=== PATIENT | female | born 1970 | race Caucasian/White ===

== ENCOUNTER → 2018-02-11 | Outpatient (CLI) | payer OTHER ==
[~2018-02-11] VITALS: Ht 170.2 cm; Wt 86.6 kg
[~2018-02-11] MED LIST: CYCLOBENZAPRINE5 MG PO; MEDROL DOSPAK21 TA1 PO; NAPROSYN500 MG PO; OXYCODONE-ACET1 EACH PO
--- NOTE | ~2018-02-11 | HPC ---
[facility] [place] [address] PAIN MANAGEMENT CONSULTATION Name: KAREN JUAN [facility] #: [facility] [id number] Admission: 02/11/18 Attend Phys: Kenny Moulton DO Discharge: Date of : 74 Report #: [id number] THIS REPORT FOR: //name// CC: Kenny Lau DATE OF SERVICE: 02/11/2018 REFERRING PHYSICIAN: Mookie Dallas M.D. CHIEF COMPLAINT: Neck pain and left upper extremity pain with paresthesias. HISTORY OF PRESENT ILLNESS: As you know, the patient is a 47-year-old female who had acute onset of neck pain, left upper extremity pain with paresthesias, presented on 02/01/2018. The patient denies any specific injury or trauma that may have led to symptom occurrence. The patient continued to experience pain intense enough that she was ultimately sent for imaging that showed a significant herniated disk at the C6-C7 level for which she was then referred to Neurosurgery. Neurosurgery evaluated the patient and advised her to trial an epidural injection under fluoroscopic guidance. There were plans for the patient to undergo surgery in the very near future, assuming no improvement in symptoms given the size of the C6-C7 herniation. She indicates pain today at level of 6-10/10. She states her pain is exacerbated with movement and improves with medications. She describes the pain as continuous, constant. She uses descriptors such as burning, shooting, aching, sharp, stabbing, numbness and tingling when describing pain. She has been referred to our service to trial a cervical epidural injection under fluoroscopic guidance in hopes of improving pain as we await surgical options. PAST MEDICAL HISTORY: None. PAST SURGICAL HISTORY: 1. Appendectomy. 2. Tonsillectomy. SOCIAL HISTORY: The patient denies tobacco, IV or illicit drug use. Admits to approximately 5 alcoholic beverages per week. 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 She is working, not receiving workmen's compensation nor is she trying to obtain disability benefits. She is not in litigation in regards to pain. She is unaccompanied at today's visit. REVIEW OF SYSTEMS: Positive for neck pain, left upper extremity pain with paresthesias and insomnia. All other review of systems negative per 12-point review of systems other than those listed in history of present illness. [address] [address] PAIN MANAGEMENT CONSULTATION Name: KAREN JUAN Room #: REG CLI Alexa#: [id number] Admission: 02/11/18 Attend Phys: Kenny Moulton DO Discharge: Date of : 74 Report #: [id number] PAIN SCORE: Pain impact score 43/70 indicating [id number] interference of daily activities secondary to pain. ALLERGIES: No known drug allergies. CURRENT MEDICATIONS: Cyclobenzaprine 5 mg t.i.d., Medrol Dosepak as directed, Percocet 5/325 one tab p.o. q. 6 hours p.r.n. for pain, naproxen 500 mg 3 times a day. IMAGING DATA: MRI of cervical spine obtained 02/09/2018 shows C2-C3, C3-C4, C4-C5 unremarkable; C5-C6 has generalized posterior disk osteophyte complex eccentric to the right with moderate right neural foraminal stenosis, no central canal stenosis; C6-C7, there is a posterior disk osteophyte complex, superimposed posterior disk herniation, herniation compresses the left anterior margin of the spinal cord and contributes to moderate left central canal stenosis, mild bilateral neural foraminal stenosis and C7-T1 unremarkable. PHYSICAL EXAMINATION: VITAL SIGNS: Blood pressure 133/69, pulse 95 and respiratory rate 14 and unlabored. The patient is 97% on room air. Height 5 feet 7 inches tall, weight 191 pounds and BMI calculated 29.9. GENERAL: Well-developed, well-nourished, well-hydrated 47-year-old female appearing stated age, placing current pain score 6-10/10. HEENT: Normocephalic and atraumatic. Pupils equal, round and reactive to light. Extraocular muscles are intact. Sclerae nonicteric without injection. NEUROLOGICAL: Cranial nerves 2 through 12 grossly intact. Speech is fluent. The patient deemed an excellent historian. LUNGS: Clear. No wheeze, rhonchi or rales. CARDIOVASCULAR: Regular. No appreciable gallop or rub. ABDOMEN: Soft, nontender and nondistended. EXTREMITIES: Show no clubbing, no cyanosis and no edema. MUSCULOSKELETAL: Upper extremity strength appears symmetrical 5/5. Muscle bulk and tone equal and symmetrical. Spurlings test positive left, negative right. Cervical provocation testing including extension, rotation, lateral flexion all intensify neck pain with radiation down the left arm and classic cervical radiculopathy. Deep tendinous reflexes symmetrical biceps, brachialis and triceps. ASSESSMENT: 1. Cervical radiculopathy. 2. Displacement of a cervical intervertebral disk with radiculopathy. 3. Cervical spondylosis with radiculopathy. PLAN: 1. Based on today's physical exam and history the patient has provided, the [facility] [address] [facility] [place] [address] PAIN MANAGEMENT CONSULTATION Name: KAREN JUAN Room #: REG CLDariel Lunsford#: [id number] Admission: 02/11/18 Attend Phys: Kenny Moulton DO Discharge: Date of : 74 Report #: [id number] description the patient uses in regards to pain as well as the distribution of symptoms in a dermatomal pattern, likely source of the patient's pain is cervical radiculopathy. This correlates with the C6-C7 findings and concurs with recent neurosurgery evaluation concluding similar diagnosis. The patient and I discussed at length today the treatment options available for cervical radiculopathy. The following was discussed with the patient for treatment options. The patient and I discussed physical therapy, stretching exercise, core strengthening and traction techniques as an option for treatment. We discussed medication management adding neuropathic pain medications and a consistent opioid along with nonsteroidal anti-inflammatories. We discussed the requested cervical epidural injection under fluoroscopic guidance. We discussed surgical options. After reviewing the risks and benefits of all proposed treatment options, the patient chose to begin with a cervical epidural injection under fluoroscopic guidance. 2. The patient was advised risks and benefits of a cervical epidural injection. These risks include but are not necessarily limited to bleeding, bruising, infection, worsening pain, no relief of pain, also risk of temporary or permanent muscle weakness, temporary or permanent nerve damage, possible paralysis, post-dural puncture headache and . The patient states understood and wished to proceed. 3. The patient was provided a refill prescription on her Percocet 5/325 one tab p.o. q. 6 hours p.r.n. for pain. I have given the patient #60 tablets, releasing today. She is to take this medication only as directed. She is to watch for any side effects of sleepiness, disorientation, confusion, mental slowing with its use. 4. We will see the patient back in followup visit, 02/25/2018 to discuss efficacy of today's epidural injection and determine if next in the series is necessary. 5. We wish to thank Dr. Zach Dallas and his nurse practitioners for the opportunity to see this patient in consultation. We will keep you apprised of her response to treatment as we address cervical radicular symptoms. Again, we wish to thank you for the opportunity to see the patient in consultation. PROCEDURE NOTE DESCRIPTION OF PROCEDURE: C7-T1 cervical epidural steroid injection under fluoroscopic guidance. This is the first procedure of the first series that the patient is undergoing. After obtaining written consent, the patient was taken back to the fluoroscopy suite and placed in a prone position with separate pillows under chest and forehead to decrease cervical lordosis. The skin overlying the cervical area was prepped and draped in an aseptic fashion. The C7-T1 vertebral interspace [address] [address] PAIN MANAGEMENT CONSULTATION Name: YESSICAKAREN ALYSSIA Room #: REG [facility] Crow.Alexa#: [id number] Admission: 02/11/18 Attend Phys: Kenny Moulton DO Discharge: Date of : 74 Report #: [id number] was identified by AP fluoroscopy. The skin and subcutaneous tissue overlying the target site of injection was anesthetized using 3 mL of 1% lidocaine. A 20-gauge 3-1/2 inch Tuohy needle was advanced under fluoroscopic guidance toward the epidural space using a midline approach. The epidural space was identified using a loss of resistance to air technique. After negative aspiration for heme or cerebrospinal fluid, a total of 0.5 mL of Omnipaque was injected. A cervical epidurogram was confirmed using AP and oblique fluoroscopy. After negative aspiration for heme or cerebrospinal fluid, 5 mL of a solution containing 2 mL 40 mg per mL, 80 mg total triamcinolone, 3 mL lidocaine 1% was injected in increments. Contrast spread was noted from posterior epidural space. The needle was then retracted approximately custodial and the needle track was flushed with 1 mL of 1% lidocaine. There were no apparent new sensory deficits in the upper extremities present following the procedure. A sterile bandage was placed over the injection site. The heart rate, pulse oximetry and blood pressure were continuously monitored after the procedure. There were no apparent complications. The patient tolerated the procedure well and was carefully escorted in the recovery room in stable condition. After meeting discharge criteria, the patient was discharged home. By: [id number] Kenny Moulton DO /nt
[2018-02-11 08:02] VITALS: BP 133/69
== END ==
LOC: PAIN 02-10 16:21
DX: M50.13 Cervical disc disorder with radiculopathy, cervicothoracic region (principal); M47.22 Other spondylosis with radiculopathy, cervical region; Z90.49 Acquired absence of other specified parts of digestive tract; Z98.890 Other specified postprocedural states; Z79.899 Other long term (current) drug therapy

== ENCOUNTER → 2021-02-26 | Outpatient (CLI) | payer OTHER | LOC: LAB 10:02 | PROVIDERS: ATTEND Student in an Organized Health Care Education/Training Program | DX: Z01.812 Encounter for preprocedural laboratory examination (principal); Z20.822 Contact with and (suspected) exposure to COVID-19 ==

== ENCOUNTER → 2021-02-27 | Day surgery (SDC) | payer OTHER ==
[~2021-02-27] VITALS: Ht 170.2 cm; Wt 81.6 kg
[2021-02-27 06:58] VITALS: BP 126/78
[2021-02-27 08:54] VITALS: BP 126/78
== END | disposition home or self-care (01) ==
LOC: OR 06:18
PROVIDERS: ATTEND Surgery
DX: K42.9 Umbilical hernia without obstruction or gangrene (principal); Z98.890 Other specified postprocedural states; Z90.49 Acquired absence of other specified parts of digestive tract
CPT/HCPCS: 50010; 50101; 50119; 50386; 50403; 56524; 56525; 56526; 62110; 62900; 70005